=== PATIENT | male | born 1960 | race Caucasian/White ===

== ENCOUNTER 2022-11-10 16:10 | Emergency (ER) | payer OTHER, SELFPAY ==
[2022-11-10 16:16] VITALS: BP 133/75; PULSE 85; RESP 18; TEMP 36.5; O2SAT 98; BMI 33.3
--- NOTE | 2022-11-10 16:19 | DI.RAD.S_ITS ---
PROCEDURE: XR ANKLE LT MIN 3V INDICATIONS: ankle injury, pain lateral malleolus TECHNIQUE: 3 views of the ankle were acquired. COMPARISON: None. FINDINGS: Bones: Old ununited medial malleolar avulsion fracture or ossicle. No evidence of acute fracture. Ankle mortise is maintained. Posterior and plantar calcaneal spurs, small Soft tissues: No tibiotalar joint effusion. Achilles tendon appears normal. IMPRESSION: No acute fracture or foreign body. Calcaneal spurs Approved by: Finn Page M.D. on 11/10/2022 at 16:16
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
== END 2022-11-10 17:18 | disposition home or self-care (01) ==
PROVIDERS: Emergency Provider Emergency Medicine
DX: S93.402A Sprain of unspecified ligament of left ankle, initial encounter (principal); S96.912A Strain of unspecified muscle and tendon at ankle and foot level, left foot, initial encounter; X50.1XXA Overexertion from prolonged static or awkward postures, initial encounter
CPT/HCPCS: 73610; 99282; 99283